=== PATIENT | female | born 1965 ===

== ENCOUNTER 2017-07-21 07:57 | Day surgery (SDC) | payer BC ==
[~2017-07-21 07:57] MED LIST: Buffered Lidocaine 0.9% SYRIN* 5 ML/SYR SYRINGE INTRADERM ONE; Dexamethasone IV* 4 MG/ML 1 ML (4 MG) IV SLOW PU ONE; Famotidine IV* 10 MG/ML 2 ML (20 mg) IV ONE
[2017-07-21] MEDS ORDERED: ceFAZolin 2 GM PREMIX (*) 2 GM/50 ML BAG IVPB ONE (08:20)
[2017-07-21] MEDS ORDERED: Famotidine IV* 10 MG/ML 2 ML (20 mg) ONE (08:21)
[2017-07-21] MEDS ORDERED: Dexamethasone IV* 4 MG/ML 1 ML (4 MG) ONE (08:21)
[2017-07-21] MEDS ORDERED: Bupivacaine 0.25% SDV* 30 ML ONE (09:28)
[2017-07-21] MEDS ORDERED: Lidocaine 1% MPF wEPI 200,000* 30 ML SDV ONE (09:28)
[2017-07-21] MEDS ORDERED: Midazolam* 1 MG/ML 2 ML VIAL (2 MG) ONE (09:53)
[2017-07-21] MEDS ORDERED: Lidocaine 2% PF * 5 ML VIAL ONE (10:05)
[2017-07-21] MEDS ORDERED: Ketorolac INJ* 30 MG/ML 1 ML VIAL ONE (10:05)
[2017-07-21] MEDS ORDERED: Propofol* 10 MG/ML 20 ML BTL IV PUSH ONE (10:05)
[2017-07-21] MEDS ORDERED: fentaNYL* 50 MCG/ML 2 ML VIAL (100 MCG VIAL) ONE (10:05)
[2017-07-21] MEDS ORDERED: oxyCODONE TAB* 5 MG TAB PO PRN (10:28)
[2017-07-21] MEDS ORDERED: PROCHLORPERAZINE INJ 5 MG/ML 2 ML VIAL IV PRN (10:28)
[2017-07-21] MEDS ORDERED: Naloxone* 0.4 MG/ML 1 ML VIAL IV PRN (10:28)
[2017-07-21] MEDS ORDERED: fentaNYL* 50 MCG/ML 2 ML VIAL (100 MCG VIAL) IV PRN (10:28)
[2017-07-21] MEDS ORDERED: HYDROcodone/ACETAMIN 5-325 MG* 1 TAB PO PRN (10:28)
[2017-07-21] MEDS ORDERED: Ondansetron INJ* 2 MG/ML VIAL ONE (10:32)
[2017-07-21] MEDS ORDERED: EPHEDrine (Pressors)* 50 MG/ML VIAL ONE (10:40)
[2017-07-21] MEDS ORDERED: methylPREDNISolone ACETATE 80* 80 MG/ML 1 ML VIAL ONE (10:48)
[2017-07-21 12:01] VITALS: BP 128/87
--- NOTE | 2017-07-22 03:43 | OP ---
CC: PCP, Brittaney Douglas NP * DATE OF OPERATION: 07/21/17 - [facility] DATE OF : 69 SURGEON: Rosalie Olson MD LANDSCAPE TECHNICIAN: ALEJANDRINA Livingston. An facilities maintenance assistant was needed for the entirety of the case to help with positioning, retraction, and was utilized throughout all portions of the case. ANESTHESIOLOGIST: Dr. Meir Florence. ANESTHESIA: General. PRE-OP DIAGNOSES: Right knee medial meniscus tear with mild patellar chondrosis. POST-OP DIAGNOSES: Right knee medial meniscus tear, lateral meniscus fraying and chondrosis of the patellofemoral joint. OPERATIVE PROCEDURE: Right knee arthroscopy with medal and lateral partial meniscectomies and chondroplasty of the patellofemoral joint. COMPLICATIONS: None. ESTIMATED BLOOD LOSS: Minimal. INDICATIONS: Rina Childers is a 52-year-old female who has had persistent right knee pain for several months. She has failed conservative management including injections. She injured it in the spring. She was having difficulty getting back to activities including stairs and jogging. She had catching. Medially based MRI demonstrated a medial meniscus tear. Risks and benefits of surgery were discussed at length including but are not limited to bleeding, infection, damage to nerves, vessels, or surrounding structures, wound nonhealing, persistent pain, need for further surgery, scarring, stiffness , incomplete relief of symptoms and risk of anesthesia. She has elected to proceed with surgery. DESCRIPTION OF PROCEDURE: The patient was greeted in the preoperative area by the attending surgeon. Correct extremity was marked and consent was confirmed. The patient was brought back to the operating suite where she was placed in supine position on the operating table, she underwent general anesthesia with LMA intubation after which she was appropriately positioned in the bed. A non- sterile tourniquet was placed high on the right leg. The lateral post was positioned. The right leg was then prepped and draped in usual sterile fashion beginning with chlorhexidine soap scrub and alcohol wipe and a final prep with ChloraPrep. After appropriate surgical pause indicating site, side, procedure, and administration of antibiotics, the knee was intraarticularly injected with 0.1% lidocaine with epi. The lateral portal was then made with 11 blade. The scope was introduced into the joint. The joint was examined. The scope was positioned in the suprapatellar pouch, which was examined and found to have grade 2 and 3 changes of the patella joint. The scope was then brought into the gutters, medial and lateral gutters were intact without any loose debris or fluids. The medial compartment was examined. There are grade 0 to 1 changes in the medial femoral chondral. There were areas of grade 1 changes to the plateau with softening. The medial meniscus is intact, had radial split tear. The joss and biters were then used to debride this back with care try to prevent trauma to the chondral surfaces. The tibial plateau did have a lot of softening. Once the meniscectomy was complete attention was directed to the notch, ACL and PCL were intact then the knee was placed in a [id number] position there was fraying of the lateral meniscus returning all the way to the root, which was debrided back using joss and biters. The lateral femoral condyle had grade 1 changes, lateral plateau had grade 1 changes. Once this was complete the knee was placed in full extension and the unstable fraying of the patella was then debrided back using the shaver to remove any of the excess chondrosis, there were areas of grade 3 changes. The knee was thoroughly lavaged with sterile saline. The wounds were copiously irrigated with sterile saline. The wounds were closed with 3-0 nylon. Knee was intraarticularly injected with 0.25% Marcaine plain, 80 mg of Depo-Medrol. Sterile dressings were applied as well as Cryo/Cuff. She was awoken from anesthesia and transferred to the PACU in stable condition. POSTOPERATIVE PLAN: She will be weightbearing as tolerated with crutches for the first 3 to 5 days. She will be discharged on pain medication. DVT prophylaxis was considered, but deferred due to no previous personal or family history. I will see the patient back in 10 to 14 days. [id number]/[facility] #: [id number] HALI
== END 2017-07-21 12:16 | disposition home or self-care (01) ==
LOC: OREAST 07:57
PROVIDERS: ATTEND Orthopaedic Surgery
DX: S83.231A Complex tear of medial meniscus, current injury, right knee, initial encounter (principal); S83.281A Other tear of lateral meniscus, current injury, right knee, initial encounter; D68.51 Activated protein C resistance; F41.9 Anxiety disorder, unspecified; Z87.891 Personal history of nicotine dependence; G47.33 Obstructive sleep apnea (adult) (pediatric); X58.XXXA Exposure to other specified factors, initial encounter; Y92.9 Unspecified place or not applicable
CPT/HCPCS: J0690; J1040; J1100; J1885; J2001; J2250; J2405; J2704; J3010